=== PATIENT | female | born 1970 | race Caucasian/White ===

== ENCOUNTER → 2016-08-28 | Outpatient (CLI) | payer OTHER ==
--- NOTE | 2016-08-28 16:08 | MAMMOGRAPHY REPORT ---
BILATERAL DIGITAL SCREENING MAMMOGRAM TOMOSYNTHESIS WITH CAD: 08/28/2016 CLINICAL HISTORY: Routine screening. TECHNIQUE: Breast tomosynthesis in addition to standard 2D mammography was performed. Current study was also evaluated with a Computer Aided Detection (CAD) system. COMPARISON: Comparison is made to exams dated: 08/25/2015 ultrasound, 08/25/2015 mammogram, 08/16/2015 mammogram, 08/03/2014 mammogram, 06/28/2013 mammogram, and 03/16/2012 mammogram - [facility] enter. BREAST COMPOSITION: The tissue of both breasts is heterogeneously dense, which may obscure small mas ses. FINDINGS: There are scattered and grouped round and punctate benign-appearing micro-calcifications i n the breasts, stable compared to prior exams. No suspicious spiculated or irregular mass, data center solutions architect ural distortion or cluster of new, suspicious microcalcifications is seen. IMPRESSION: ACR BI-RADS CATEGORY 1: NEGATIVE There is no mammographic evidence of malignancy. A 1 year screening mammogram is recommended. The pa tient will receive written notification of the results. Approximately 10% of breast cancers are not detected with mammography. A negative mammographic report should not delay biopsy if a clinically suggestive mass is present. Gloria Mcallister M.D. ay/:08/28/2016 15:00:13 Attending Technologist: Keila Mccann RT(R)(M)(BD), [facility] Aircraft Skin Burnisher: Barbara Dillard RT(R)(M), [facility] letter sent: Normal 1/2 BI-RADS Code: ACR BI-RADS Category 1: Negative
== END | disposition home or self-care (01) ==
LOC: C.MAMM 11:56
PROVIDERS: ATTEND Family Medicine
DX: Z12.31 Encounter for screening mammogram for malignant neoplasm of breast (principal)

== ENCOUNTER 2023-12-19 05:57 | Observation (INO) ==
--- NOTE | 2023-12-08 13:43 | Anesthesiology Consultation ---
Date of Service December 08, 2023 Assessment & Plan (1) Encounter for pre-operative examination: Chart Review Chart Review: Acceptable Risk for Surgery and Patient NOT seen in Pre Admission Testing Hcg, CBC, BMP to be compelted AM of surgery Infectious Disease screening: Per PAT nursing assessment on 12/08/23,No known infectious disease contacts in past 10 days or current infectious disease symptoms. No recent travel outside the country. History Surgery Operation Date: 12/19/23 07:30 Proposed Procedures p Robotic Laparoscopic Removal of Uterus and Both Fallopian Tubes, Possible Removal of One or Both Ovaries (If Indicated), Cystoscopy - Micheline Vasquez MD Height/Weight Height: 5 ft 5 in Weight: 77 kg Allergies Allergy/AdvReac Type Severity Reaction Status Date / Time No Known Allergies Allergy Verified 12/08/23 12:57 Medications Home Medications Medication Instructions Recorded Confirmed Last Taken cetirizine 10 mg capsule (All Day 10 mg PO HS 07/03/23 12/08/23 08/28/23 22:00 Allergy (cetirizine)) citalopram 20 mg tablet 20 mg PO QAM 07/03/23 12/08/23 08/29/23 07:00 furosemide 20 mg tablet 20 mg PO QAM PRN Edema 07/03/23 12/08/23 Unknown ibuprofen 200 mg capsule 800 mg PO HS 07/03/23 12/08/23 08/28/23 22:00 valacyclovir 1 gram tablet 1,000 mg PO DAILY PRN Cold Sores 07/03/23 12/08/23 Unknown multivitamin 1 tab PO QAM 08/18/23 12/08/23 08/28/23 08:00 norethindrone acetate 5 mg tablet 5 mg PO QAM #90 tabs 09/15/23 12/08/23 Unknown cholecalciferol (vitamin D3) 50 50 mcg PO QAM 12/08/23 12/08/23 Unknown mcg (2,000 unit) capsule (Vitamin D3) Past Medical History Medical History (Updated 12/08/23 @ 13:56 by Magdalena Vaughan PA-C) Cerebral palsy Stable for years Follows with [facility] [place] on as needed basis uses walker Depression with anxiety Per records Diverticular disease DUB (dysfunctional uterine bleeding) Lower extremity edema Furosemide PRN Thickened endometrium Past Family History Family History Sister Breast cancer, Onset Age: 47 Mother Family history of reaction to anesthesia Slow to wake x1- "her heart was not doing what it was supposed to be doing and placed on the heart floor post-op" after a knee surgery 2013. No problems since. Denies family history of Ovarian cancer Prostate cancer Colorectal cancer Past Surgical History Surgical History (Updated 12/08/23 @ 13:55 by Magdalena Vaughan PA-C) H/O oral surgery Dental implant H/O wisdom tooth extraction History of hysteroscopy 08/29/23 @ [facility]: [place]: LMA#4 iGel; no issues Hx of colonoscopy Social History Smoking Status: Never smoker Do You Dip or Chew Tobacco: No Hx Alcohol Use: No Hx Substance Use: No substance use type: does not use Testing Electrocardiogram Date: 07/18/23 Findings: + NSR @ (99bpm)
[2023-12-19] MEDS ORDERED: SODIUM CHLORIDE 0.9% 1,000 ML IV SCH (06:00)
[2023-12-19] MEDS: LACTATED RINGER'S 1,000 ML IV SCH (06:36)
[2023-12-19] MEDS: LR 15ML/HR IV SCH (06:36)
[2023-12-19] MEDS ORDERED: ACETAMINOPHEN 1000 MG/100 ML IV IV ONE (06:45)
[2023-12-19] MEDS ORDERED: FAMOTIDINE/PF 20 MG/2 ML VIAL IV ONE (06:46)
[2023-12-19] MEDS ORDERED: MIDAZOLAM HCL 1 MG/ML 2ML VIAL ONE (06:49)
[2023-12-19] MEDS ORDERED: fentaNYL citrate PF 100 MCG/2 ML VIAL ONE (06:51)
[2023-12-19] MEDS ORDERED: LIDOCAINE 2% 2 ML VIAL/AMP(20MG/ML) INFIL ONE (06:53)
[2023-12-19] MEDS ORDERED: ONDANSETRON INJ 2 MG/ML 2 ML VIAL ONE (06:54)
[2023-12-19] MEDS ORDERED: ROCURONIUM BROMIDE 10 MG/ML 5 ML VIAL IV ONE ×4 (06:55→10:44)
[2023-12-19] MEDS ORDERED: DEXAMETHASONE SOD INJ 4 MG/ML VIAL ONE ×2 (06:56)
[2023-12-19 07:00] LABS: Hematocrit (blood only) 40.3 % (37.0-47.0); Hemoglobin 14.4 g/dl (12.0-16.0); Mean Corpuscular Hemoglobin 29.6 pg (25.0-34.0); Mean Corpuscular Hgb Conc 35.7 g/dL (32.0-36.0); Mean Corpuscular Volume 82.9 fL (80.0-100.0); Mean Platelet Volume 10.6 fL (9.4-12.4); Platelet Count 236 K/uL (130-400); Red Blood Count 4.86 M/uL (4.20-5.40)
[2023-12-19] MEDS ORDERED: ePHEDrine sulfate 50 MG/ML AMP IV PRN (07:08)
[2023-12-19] MEDS ORDERED: ATROPINE SULFATE 0.1 MG/ML 10ML SYR IV PRN (07:08)
[2023-12-19] MEDS ORDERED: HYDROmorphone INJ 2 MG/ML SYR/VIAL IV PRN (07:08)
[2023-12-19] MEDS ORDERED: DROPERIDOL 5 MG/2 ML VIAL IV PRN (07:08)
[2023-12-19] MEDS ORDERED: IBUPROFEN 600 MG TAB PO PRN (07:11)
[2023-12-19] MEDS ORDERED: ONDANSETRON INJ 2 MG/ML 2 ML VIAL IV PRN ×2 (07:11→15:09)
[2023-12-19] MEDS ORDERED: oxyCODONE/ACETAMINOPHEN 5mg/325mg TAB PO PRN ×2 (07:11→15:09)
--- NOTE | 2023-12-19 07:11 | History & Physical Bridge Note ---
Date of Service December 19, 2023 History & Physical Bridge Note I have examined the patient, reviewed the History & Physical and in the interval since the performance of the History & Physical I have noted the following changes of clinical significance: no changes noted
[2023-12-19 07:21] LABS: BUN Creatinine Ratio 18.8 (10-20); Calcium 8.9 mg/dl (8.6-10.3); Creatinine Clr Calc Pharmacy 109.1 ml/min
[2023-12-19] MEDS: ceFAZolin 3000MG 3,000 MG/72.5 ML BAG IV SCH (07:26)
[2023-12-19] MEDS ORDERED: HYDROmorphone INJ 2 MG/ML SYR/VIAL ONE (07:55)
[2023-12-19] MEDS ORDERED: KETAMINE HCL 10MG/ML SYR ONE (07:55)
[2023-12-19] MEDS ORDERED: KETOROLAC 30 MG/ML VIAL ONE (08:29)
[2023-12-19] MEDS ORDERED: SUGAMMADEX SODIUM 200 MG/2 ML VIAL IV ONE (09:55)
[2023-12-19] MEDS ORDERED: METHYLENE BLUE 0.5% 10 ML VIAL ONE (10:41)
--- NOTE | 2023-12-19 11:19 | Operative Report ---
PG Post Operative Report Pre & Post Diagnosis Operation Date: 12/19/23 07:30 Pre-Op Diagnosis: Uterine Fibroid, Dysfunctional Uterine Bleeding Post-Op Diagnosis: Uterine Fibroid, Dysfunctional Uterine Bleeding Uterus weight of 846gm I identified the patient and participated in the time-out.: Yes Procedure Operation Date: 12/19/23 07:30 Actual Procedures Robotic Laparoscopic Removal of Uterus and Both Fallopian Tubes, Cystoscopy Surgeon Micheline Vasquez MD Waiter/Waitress None Estimated Blood Loss 100 Findings Consistent with Post-Op Diagnosis Specimens Surgically resected uterus, cervix, bilateral fallopian tubes, fibroids Anesthesia Type General Complications none Disposition Accompanied Patient To Recovery: Yes Disposition: Recovery Room Description of Procedure The patient was placed on the table in lithotomy position and prepped/draped in standard sterile fashion. A hard time out was taken prior to proceeding. Of note, contractures made positioning of the legs somewhat difficult, as the knees were tending to pull medially, so padding was placed on the medial aspect of the calves and the knees were permitted to be positioned more medially than usual to avoid excess pressure on the legs; as much as was possible, pressure points were avoided and foam padding was added. The henderson and V-Care uterine manipulator were placed without complication. Optical entry was made above the umbilicus with a robotic trocar and 5mm camera, which was accomplished without complications. The abdomen was insufflated, and the patient was placed in Trendelenburg. Under direct visualization, right and left lower quadrant ports were placed. Survey of the pelvic organs revealed enlarged fibroid uterus, normal tubes, and normal ovaries, with significant anatomic distortion, rotational displacement of the adnexal structures in particular, and bilateral ureters quite low / peristalsing clearly. The robot was docked and surgery then proceeded. Cautery was used to dissect each fallopian tube free from its fimbriated end to the cornua. The utero-ovarian ligaments were ligated and divided. The round ligaments were ligated and divided. The broad ligaments were dissected to create a bladder flap and skeletonize the uterine arteries. The bladder was mobilized downwards, the uterine arteries were ligated and divided bilaterally, and the colpotomy was completed circumferentially. The uterus, cervix and tubes were placed en bloc into the tissue extraction bag which was introduced via the vagina, and the brim of the bag was worked free outside the vaginal orifice. A plastic protection ri ng was introduced inside the ZIA bag, into the vaginal canal, to protect the obregon. EXCITE technique was utilized to remove the entire surgical specimen vaginally in small portions, maintaining laparoscopic view of the bag the entire time to ensure safety. A V-Sánchez suture was introduced via the vagina and used to close the cuff in a running nonlocked manner. The needle was then retrieved via robotic trocar. Suction/irrigation was used to wash and observe all working sites; this final survey of the surgical sites revealed good hemostasis. Vaginal exam was completed and showed an intact vaginal wall circumferentially, distal to proximal, free of any injury or bleeding. The henderson was noted to have some bloody urine in the tubing when it was removed prior to cysto. Cystoscopy was performed after administration of methylene blue dye, and showed an intact bladder dome free of injury and a good strong jet of urine from both ureteral orifices. The entire bladder and urethra were carefully examined and found to have some blunt bruising and a small ooze of bleeding from the posterior bladder wall, consistent with blunt pressure and abrasion during uterine extraction. There was no wound, and no pulsatile bleeding. The bladder was then drained of clear irrigation saline fluid. The abdomen was deflated and all instruments were removed. The port sites were closed with 4-0 monocryl and a dermabond dressing. A final vaginal exam ensured no materials remained and the cuff was intact. The patient was transferred to the recovery room in good condition. I attest to the content of the Intraoperative Record and any orders documented therein. Any exceptions are noted below. 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
--- NOTE | 2023-12-19 12:34 | Anesthesiology Progress Note ---
Date of Service December 19, 2023 Anesthesia Post Procedure Vital Signs Vital Signs: Temp Pulse Pulse Pulse Resp BP Pulse Ox 12/19/23 12:20 109 H 18 147/100 H 93 12/19/23 11:50 36.5 C 107 H 18 146/104 H 94 12/19/23 11:45 36.4 C L 107 H 13 148/95 H 94 12/19/23 11:35 105 H 14 138/90 96 12/19/23 11:25 99 H 14 146/94 H 97 12/19/23 11:15 100 H 16 154/90 H 97 12/19/23 11:07 36.0 C L 104 H 23 153/95 H 97 12/19/23 06:28 37 C 93 H 16 167/98 H 96 O2 Del Method O2 Flow Rate 12/19/23 12:20 Room Air 12/19/23 11:50 Room Air 12/19/23 11:45 Room Air 12/19/23 11:35 Oxymask 2 12/19/23 11:25 Oxymask 6 12/19/23 11:15 Oxymask 6 12/19/23 11:07 Oxymask 6 12/19/23 06:28 Room Air Transfer of Care Handoff Completed per policy Notes Mental Status: alert / awake / arousable and participated in evaluation Nausea / Vomiting: adequately controlled Pain: adequately controlled Airway Patency, RR, SpO2: stable & adequate BP & HR: stable & adequate Hydration State: stable & adequate Anesthetic Complications: no major complications apparent and Pt Satisfied with anesthetic care
[2023-12-19] MEDS: oxyCODONE/ACETAMINOPHEN 5mg/325mg TAB PO PRN (15:03)
[2023-12-19] MEDS ORDERED: bisacodyL 10 MG SUPP PR PRN (15:09)
[2023-12-19] MEDS ORDERED: ACETAMINOPHEN 325 MG TAB PO PRN (15:09)
--- NOTE | 2023-12-19 16:37 | Electrocardiogram Report ---
Test Reason : Blood Pressure : */* mmHG Vent. Rate : 115 BPM Atrial Rate : 115 BPM P-R Int : 154 ms QRS Dur : 78 ms QT Int : 320 ms P-R-T Axes : 61 52 40 degrees QTcB Int : 442 ms Poor data quality, interpretation may be adversely affected Sinus tachycardia Otherwise normal ECG When compared with ECG of 18-Jul-2023 11:24, No significant change was found Confirmed by Tono Romano ([id number]) on 12/19/2023 4:36:51 PM Referred By: Micheline Vasquez Confirmed By: Tono Romano
[2023-12-19 17:12] LABS: Hematocrit (blood only) 44.2 % (37.0-47.0); Hemoglobin 15.1 g/dl (12.0-16.0); Mean Corpuscular Hemoglobin 28.9 pg (25.0-34.0); Mean Corpuscular Hgb Conc 34.2 g/dL (32.0-36.0); Mean Corpuscular Volume 84.7 fL (80.0-100.0); Mean Platelet Volume 10.2 fL (9.4-12.4); Platelet Count 228 K/uL (130-400); RDW Standard Deviation 40.1 fL (36.4-46.3); Red Blood Count 5.22 M/uL (4.20-5.40); White Blood Count 16.24 K/ul (4.8-10.8)
[2023-12-19] MEDS ORDERED: FUROSEMIDE 20 MG TAB PO PRN (19:30)
[2023-12-19] MEDS: CETIRIZINE HCL 10 MG TABLET PO SCH (20:06)
[2023-12-20 03:20] VITALS: RESP 16; O2SAT 96
[2023-12-20] MEDS: oxyCODONE/ACETAMINOPHEN 5mg/325mg TAB PO PRN (03:21)
--- NOTE | 2023-12-20 07:17 | Gynecologic Progress Note ---
Date of Service December 20, 2023 Assessment & Plan (1) Postop check: Plan: VSS, initial BP was elevated however recheck was ok and stable since Meeting all postop milestones, pt and her support person both feel that she seems more comfortable w/ walker and going home Postop appt per primary surgeon Admission and Anticipated Discharge Date Admission Date: December 19, 2023 Subjective DEBORAH. Pain well managed, minimal bleeding. Tolerating PO, voiding spontaneously and passing gas. Ambulating w/ walker which is her baseline due to CP, feels more comfortable with it today than she did yesterday. Denies fevers, chills, n/v, CHAN, CP, SOB Physical Exam Gastrointestinal (Abdomen): abd soft, appropriate tender, appropriately distended. No rebound or guarding. Incisions c/d/i w/ dermabond Results & Data Vital Signs (Past 12 Hours) Vital Signs Temp Pulse Resp BP Pulse Ox O2 Del Method 12/20/23 03:18 98.6 F 95 H 16 144/87 H 96 Room Air 12/19/23 23:07 98.4 F 76 18 138/68 98 Room Air 12/19/23 19:50 158/89 H 12/19/23 19:15 97.7 F 111 H 18 174/94 H 97 Room Air PG Care Time/CCT Total # of Minutes Spent Total Time Spent with Patient: Total time spent is greater than 50% in coordination of care (as documented) at patient's floor/unit and/or counseling patient: Coding Level of Care Code 32889 Post Operative Follow-Up Diagnoses Postop check Z09
[2023-12-20 07:52] VITALS: BP 123/69; PULSE 100; TEMP 98.2
[2023-12-20] MEDS: CITALOPRAM 20 MG TAB PO SCH (08:43)
== END 2023-12-20 09:10 | disposition home or self-care (01) ==
LOC: 4E1 05:57 → ASU 05:57
DX: Z79.899 Other long term (current) drug therapy; D25.9 Leiomyoma of uterus, unspecified; N93.8 Other specified abnormal uterine and vaginal bleeding